=== PATIENT | male | born 1975 | race Caucasian/White ===

== ENCOUNTER → 2021-04-15 13:44 | Outpatient (CLI) | payer OTHER, SELFPAY ==
--- NOTE | 2021-04-15 | DI.RAD.S_ITS ---
PROCEDURE: XR FOOT LT MIN 3V INDICATIONS: PAIN IN LEFT FOOT TECHNIQUE: 3 views of the foot were acquired. COMPARISON: [facility], , FOOT COMP MIN 3VW (LT), 11/13/2014, 16:49. FINDINGS: Bones: No fractures or dislocations. No suspicious bony lesions. Scattered degenerative subchondral sclerosis and spurring. Soft tissues: Previously seen calcifications at the 2nd and 3rd MTP joints appear resolved since 11/13/14. IMPRESSION: Mild degenerative spurring. Dictated by: Neno Richard M.D. on 04/15/2021 at 15:14 Approved by: Neno Richard M.D. on 04/15/2021 at 15:17
--- NOTE | 2021-04-15 | DI.RAD.S_ITS ---
PROCEDURE: XR FINGER RT MIN 2V INDICATIONS: PAIN IN RIGHT THUMB TECHNIQUE: AP hand, 2 views of the right finger(s) acquired. COMPARISON: None. FINDINGS: Bones: No fractures or dislocations. No suspicious bony lesions. Tiny chronic appearing 1 mm ossicle projects adjacent to the distal phalanx of the thumb. Scattered degenerative subchondral sclerosis and spurring. Soft tissues: No suspicious soft tissue calcifications. IMPRESSION: Mild degenerative changes as above. If the patient's pain or other symptoms persist, consider further evaluation with MRI Dictated by: Neno Richard M.D. on 04/15/2021 at 15:10 Approved by: Neno Richard M.D. on 04/15/2021 at 15:14
== END ==
PROVIDERS: PCP Family Medicine; Referring Provider Family Medicine; Visit Provider Family Medicine
DX: M79.644 Pain in right finger(s) (principal); M79.672 Pain in left foot
CPT/HCPCS: 73140; 73630